=== PATIENT | female | born 1960 | race Caucasian/White ===

== ENCOUNTER 2020-08-11 12:01 | Day surgery (SDC) | payer MEDICAID ==
[~2020-08-11] VITALS: Ht 162.6 cm; Wt 85.4 kg
--- NOTE | ~2020-08-11 | HEMODYNAMI ---
PATIENT:LUCÍA GAMEZ MEDICAL RECORD: [id number] : 62 LOCATION:[facility] ADMISSION DATE: 08/11/20 Generatedon:114:41 Patient name: LUCÍA GAMEZ Patient #: [id number] SSN: [id number] : 1960 Date of study: 08/11/2020 Page: Of Hemodynamic Procedure Report Patient Data Patient Demographics Procedure consent was obtained First Name: LUCÍA Gender: Female Last Name: FRANCO : 1960 Patient #: [id number] Age: 59 year(s) Race: SSN: [id number] Additional ID: [id number] Contact details [address]: [address] [place] [address] State: [place] City: [place] Zip code: [address] Past Medical History Allergies: No known allergies Admission Admission Data Admission Date: 08/11/2020 Admission Time: 12:01 Arrival Date: 08/11/2020 Arrival Time: 0:00 Admit Source: Other Insurance Payor: Medicaid [facility] #: [id number] Height (in.): 64 BSA: 1.91 (m2) Height (cm.): 162.56 BMI: 32.44 (kg/m2) Weight (lbs.): 189 Weight (kg.): 85.73 Lab Results Lab Result Date: 08/11/2020 Lab Result Time: 0:00 Biochemistry Name Units Result Min Max BUN mg/dl 14 --(--*-)-- 7 18 Creatinine mg/dl 0.6 --(*---)-- 0.6 1.3 eGFR ml/min 90 --(*---)-- 90 120 NONAFRICAN CBC Name Units Result Min Max Hematocrit % 42.2 --(*---)-- 42 54 Hemoglobin g/dl 13.8 --(*---)-- 13.5 17.5 Procedure Procedure Types Cath Procedure Diagnostic Procedure [facility] w/Coronaries Sedation Charges Moderate Sedation 10-24 minutes Procedure Description Procedure Date Procedure Date: 08/11/2020 Procedure Start Time: 14:26 Procedure End Time: 14:38 Procedure Staff Name Function Alessandro Albarran RN Record Changer Tester Jsoe David Molina MD Performing Physician Ousmane Aldana RN Nurse Lorena Garcia RT Monitor Terra Jansen RT Scrub Procedure Data Cath Procedure Fluoroscopy Diagnostic fluoroscopy Total fluoroscopy Time: 0.8 time: 0.8 min min Diagnostic fluoroscopy Total fluoroscopy dose: 302 dose: 302 mGy mGy Contrast Material Contrast Material Type Amount (ml) Isovue 300 48 Entry Location Entry Primary Successful Side Size Upsize Upsize Entry Closure Succes sful Closure Location (Fr) 1 (Fr) 2 (Fr) Remarks Device Remarks Femoral Right 5 Fr Exoseal artery Estimated blood loss: 5 ml Diagnostic catheters Device Type Used For End Catheter Placement MULTIPACK JL 4.0 5Fr Procedure catheter MULTIPACK 3DRC 5Fr Procedure catheter MULTIPACK Pigtail 5 Fr Procedure catheter Procedure Complications No complications Procedure Medications Medication Administration Route Dosage 0.9% NaCl I.V. 100 ml/hr Oxygen etCO2 Nasal cannula 2 l/min Heparin Flush Bag added to field 2 bags (1000units/500ml NS) Lidocaine 2% added to field 20 Versed I.V. 1 mg Fentanyl I.V. 50 mcg Versed I.V. 1 mg Fentanyl I.V. 50 mcg Versed I.V. 0.5 mg Versed I.V. 0.5 mg Hemodynamics Rest BSA: 1.91 (m2) HGB: 13.8 (g/dl) O2 Consumption: Estimated: 172.59 (ml/min) O2 Co nsumption indexed: Estimated:90.36 (ml/min/m) Heart Rate: 57 (bpm) Pressure Samples Time Site Value (mmHg) Purpose Heart Use Rate(bpm) 14:33 LV 104/19,21 Snapshot 70 Gradients Valve Time Site Site Mean SEP/DFP Peak To Heart Use 1 2 (mmHg) (sec/min) Peak Rate (mmHg) (bpm) Aortic 14:33 LV AO 64 Snapshots Pre Cath Intra NCS Post Cath Vital Signs Time Heart Resp SPO2 etCO2 NIBP Rhythm Pain Sedation Rate (ipm) (%) (mmHg) (mmHg) Status Level (bpm) 14:20:01 59 16 100 33.7 129/78(94) NSR 0 (11) 10(A) , No pain 14:24:11 65 16 96 34.5 106/74(85) NSR 0 (11) 10(A) , No pain 14:28:13 60 15 93 24 114/72(88) NSR 0 (11) 10(A) , No pain 14:32:19 69 14 92 37.5 116/71(92) NSR 0 (11) 10(A) , No pain 14:36:24 69 15 94 21.7 115/71(88) NSR 0 (11) 10(A) , No pain Medications Time Medication Route Dose Verified Delivered Reason Notes Eff ectiveness by by 14:19:52 0.9% NaCl I.V. 100 Ousmane Ousmane Per ml/hr Katya Aldana physician RN RN 14:20:01 Oxygen etCO2 2 Ousmane Ousmane for low 02 Nasal l/min Lorigan Lorigan sats cannula RN RN 14:20:12 Heparin Flush added 2 Ousmane Ousmane used for Bag to bags Lorigan Lorigan procedure (1000units/500ml field RN RN NS) 14:20:23 Lidocaine 2% added 20ml Ousmane Ousmane for local to vial Lorigan Lorigan anesthetic field RN RN 14:24:23 Versed I.V. 1 mg Ousmane Ousmane for Lorigan Lorigan sedation RN RN 14:24:31 Fentanyl I.V. 50 Ousmane Ousmane for mcg Lorigan Lorigan sedation RN RN 14:27:56 Versed I.V. 1 mg Ousmane Ousmane for Lorigan Lorigan sedation RN RN 14:28:02 Fentanyl I.V. 50 Ousmane Ousmane for mcg Lorigan Lorigan sedation RN RN 14:29:39 Versed I.V. 0.5 Ousmane Ousmane for mg Lorigan Lorigan sedation RN RN 14:33:16 Versed I.V. 0.5 Ousmane Ousmane for mg Lorigan Lorigan sedation RN accountant tax Log Time Note 13:29:16 Informed consent obtained and on chart 13:29:34 Diagnostic Cath Status : Elective 13:29:55 Arrival Date: 08/11/2020 12:00:00 AM 13:29:56 Admit Source: Other 13:29:59 Insurance Payor : Medicaid 13:30:15 Patient Height : 64 inches 13:30:17 Patient Weight : 189 lbs 14:02:10 Procedure Status Elective Heart Cath (OP). 14:02:11 Time tracking: Regular hours (M-F 7:00 - 5:00) 14:02:15 Plan of Care:Hemodynamics will remain stable., Cardiac rhythm will remain stable., Comfort level will be maintained., Respiratory function will remain adequate., Patient/ family verbilizes understanding of procedure., Procedure tolerated without complication., Recovers from procedure without complications.. 14:02:49 H&P Date Dictated: 08/05/2020 Within 30 days and on chart., H&P Addendum completed by physician on day of procedure. (MUST COMPLETE FOR ALL OUTPATIENTS). 14:02:55 Patient allergic to No known allergies 14:04:01 Ousmane Aldana RN sent for patient. Start room use. 14:05:52 ACC Patient presents with Stable Angina CCS Anginal Class 2--Slight limitation of ordinary activity. 14:05:57 Family in waiting room. 14:05:58 Patient NPO since Midnight. 14:06:02 Alarms reviewed by R. N. 14:06:02 Sharps counted by scrub and verified by R.N. 14:06:05 Lab results completed and on chart. 14:06:30 Lab Result : Creatinine 0.6 mg/dl 14:06:30 Lab Result : BUN 14 mg/dl 14:06:30 Lab Result : eGFR NONAFRICAN 90 ml/min 14:06:30 Lab Result : Hemoglobin 13.8 g/dl 14:06:30 Lab Result : Hematocrit 42.2 % 14:06:35 Stress Test: no; N/A ? 14:17:40 Patient received from Pre/Post Procedure Room to CCL 2 Alert and oriented. Tansferred to table in Supine position. 14:17:41 Warm blankets applied, and brianne hugger turned on for patient comfort. 14:17:42 Correct patient and procedure confirmed by team. 14:17:42 ECG and BP/O2 sat monitors applied to patient. 14:17:43 Vital chart was started 14:17:45 Baseline sample Acquired. 14:17:48 Rhythm: sinus bradycardia 14:17:49 Full Disclosure recording started 14:17:50 Pre-procedure instructions explained to patient. 14:17:51 Pre-op teaching completed and patient verbalized understanding. 14:17:53 Is the patient allergic to Iodine/contrast media? No. 14:17:54 Is patient on blood thinner?No 14:17:55 Patient diabetic? No. 14:19:07 Patient not . Patient is over age 55. 14:19:42 Previous problem with sedation/anesthesia? No ? 14:19:43 Snore? Yes 14:19:44 Sleep apnea? No 14:19:45 Deviated septum? No 14:19:45 Opens mouth fully? Yes 14:19:46 Sticks out tongue? Yes 14:19:48 Airway obstruction? No ? 14:19:50 Dentures? No ? 14:19:52 0.9% NaCl 100 ml/hr I.V. was administered by Ousmane Aldana RN; Per physician; Verbal order read back and verified. 14:19:54 Pre procedure: right dorsailis pedis pulse 1+ Palpable, but thready & weak; easily obliterated 14:19:59 IV patent on arrival in right wrist with 0.9% NaCl at O. 14:20:01 Oxygen 2 l/min etCO2 Nasal cannula was administered by Ousmane Aldana RN; for low 02 sats; Verbal order read back and verified. 14:20:08 Right groin area was prepped with chlora-prep and draped in sterile fashion 14:20:12 Heparin Flush Bag (1000units/500ml NS) 2 bags added to field was administered by Ousmane Aldana RN; used for procedure; Verbal order read back and verified. 14:20:23 Lidocaine 2% 20ml vial added to field was administered by Ousmane Aldana RN; for local anesthetic; Verbal order read back and verified. 14:24:03 --------ALL STOP TIME OUT------ 14:24:03 Final Timeout: patient, procedure, and site verified with staff and physician. All members of the team are in agreement. 14:24:04 Right groin site verified by team. 14:24:07 Fire Safety Assessment: A--An alcohol-based skin anteseptic being used preoperatively., C--Open oxygen or nitrous oxide is being used., D--An ESU, laser, or fiber-optic light is being used. 14:24:10 Physical assessment completed. ASA score P 2 - A patient with mild systemic disease as per Jose David Molina MD. 14:24:12 1) 90+ Normal kidney functon but urine findings or structural abnormalities or genetic trait point to kidney disease. 14:24:15 Maximum allowable contrast dose (3.7 X eGFR X 0.75)250 ml. 14:24:17 Sedation plan: IV Moderate Sedation Medication:Versed, Fentanyl 14:24:23 Versed 1 mg I.V. was administered by Ousmane Aldnaa RN; for sedation; Verbal order read back and verified. 14:24:31 Fentanyl 50 mcg I.V. was administered by Ousmane Aldana RN; for sedation; Verbal order read back and verified. 14:25:12 Use device set Femoral Dx 14:25:13 ACIST Syringe (24117) opened to sterile field. 14:25:13 Bag Decanter (2002S) opened to sterile field. 14:25:14 ACIST Manifold (53756) opened to sterile field. 14:25:15 ACIST Hand Control (10648) opened to sterile field. 14:25:15 Tegaderm 4 x 4 (1626W) opened to sterile field. 14:25:16 Medline Cath Pack ([id number]) opened to sterile field. 14:25:17 DIAGNOSTIC Multipack 5Fr catheter set (RX8768) opened to sterile field. 14:25:18 SHEATH 5FR Dyer (TUI120) opened to sterile field. 14:25:18 EMERALD Guide Wire (562-519) opened to sterile field. 14:25:56 Procedure started. 14:26:40 Zero performed for pressure channel P1 14:26:49 Local anesthetic to right femoral artery with Lidocaine 2% by Jose David Molina MD.INITIAL ACCESS ONLY 14:27:56 Versed 1 mg I.V. was administered by Ousmane Aldana RN; for sedation; Verbal order read back and verified. 14:28:02 Fentanyl 50 mcg I.V. was administered by Ousmane Aldana RN; for sedation; Verbal order read back and verified. 14:28:18 A 5 Fr sheath was inserted into the Right Femoral artery 14:28:34 A MULTIPACK JL 4.0 5Fr catheter was advanced over the wire and used for Procedure. 14:29:05 LCA angiography performed. 14:29:39 Versed 0.5 mg I.V. was administered by Ousmane Aldana RN; for sedation; Verbal order read back and verified. 14:30:01 Catheter removed. 14:30:17 A MULTIPACK 3DRC 5Fr catheter was advanced over the wire and used for Procedure. 14:31:30 RCA angiography performed. 14:31:37 Catheter removed. 14:32:22 A MULTIPACK Pigtail 5 Fr catheter was advanced over the wire and used for Procedure. 14:32:47 LV gram done using MENARD 14:33:00 Injector settings: Ml/sec: 10, Volume: 20, 14:33:10 LV hemodynamics recorded. 14:33:16 Versed 0.5 mg I.V. was administered by Ousmane Aldana RN; for sedation; Verbal order read back and verified. 14:33:17 EF : 55 % 14:33:35 Catheter removed. 14:34:00 EXOSEAL 5Fr (EX500) opened to sterile field. 14:34:51 Sheath removed intact; hemostasis achieved with Exoseal to the Right Femoral artery. 14:35:14 Procedure ended.(Physican Out) 14:35:43 Fluoroscopy time 00.80 minutes. 14:35:47 Flurop Dose total: 302 14:35:47 Fluoroscopy dose: 302 mGy 14:35:50 Dose Area Product 85401 mGy/cm. 14:35:54 Contrast amount:Isovue 300 48ml. 14:35:56 Maximum allowable dose exceeded? No. 14:35:56 Sharps counted by scrub and verified by R.N. 14:35:59 Post-op/insertion site Right Femoral artery dressed using a 4 x 4 and Tegaderm. 14:36:10 Post-procedure physical assessment completed. ASA score P 2 - A patient with mild systemic disease as per Jose David Molina MD. 14:36:17 Post procedure rhythm: sinus rhythm 14:36:24 Estimated blood loss: 5 ml 14:36:25 Post procedure instruction explained to patient.Patient verbalizes understanding. 14:36:25 Patient needs reinforcement of post procedure teaching. 14:36:40 Procedure type changed to Cath procedure, Diagnostic procedure, LHC, LHC w/Coronaries, Sedation Charges, Moderate Sedation 10-24 minutes 14:36:57 Procedure and supply charges have been captured, reviewed, submitted and are correct. 14:36:59 Procedure Complication : No complications 14:37:05 LHC Findings: mild to moderate CAD (<70%) 14:37:06 Operative report dictated upon procedure completion. 14:37:07 See physician's report for complete and final results. 14:37:43 Vital chart was stopped 14:37:52 Report given to Pre/Post Procedure Room. 14:37:59 Patient transfered to Pre/Post Procedure Room with Bed. 14:38:01 Procedure ended. 14:38:01 Full Disclosure recording stopped 14:38:07 End room use (Document Last) 14:40:22 End room use (Document Last) 14:41:13 End room use (Document Last) Device Usage Item Name Manufacture Quantity Catalog Hospital Part Current Minimal L ot# / Number Charge Number Stock Stock Serial# Code ACIST Acist 1 20067 329689 233673 126343 20 Syringe Medical (35237) Systems Inc Bag Microtek 1 2001S 252961 22929 585784 5 Decanter Medical Inc. () ACIST Acist 1 77462 023239 208192 746866 5 Manifold Medical (41673) Systems Inc ACIST Hand Acist 1 73133 693290 399835 207330 5 Control Medical (28355) Systems Inc Tegaderm 4 3M 1 1626W 229669 800464 378805 5 x 4 (1626W) Medline Medline 1 [id number] 654571 62306 597535 5 Cath Pack ([id number]) DIAGNOSTIC Cardinal 1 AK4896 570422 71559 983222 30 Multipack Health 5Fr catheter set (BX4312) SHEATH 5FR Terumo 1 IJQ142 970512 276502 892955 5 Dyer (JYX203) EMERALD Cardinal 1 502-455 971901 005941 925942 5 Guide Wire Health (502-455) MULTIPACK Cardinal 1 893303 5 JL 4.0 5Fr Health catheter MULTIPACK Cardinal 1 478576 5 3DRC 5Fr Health catheter MULTIPACK Cardinal 1 859367 5 Pigtail 5 Health Fr catheter EXOSEAL 5Fr Cardinal 1 EX500 615859 923925 252355 10 (EX500) Health Signature Audit [place] Stage Time Signature Unsigned Intra-Procedure 08/11/2020 Lorena Garcia 2:40:22 PM RT(R) Intra-Procedure 08/11/2020 Ousmane 2:41:13 PM Lorigan RN Intra-Procedure 08/11/[address] 2:41:30 PM Sravan ISAAC Signatures Performing Physician : Signature : Jose David Molina MD Date : Time : Nurse : Ousmane Lorigan Signature : RN Date : Time : Monitor : Lorena Garcia Signature : RT Date : Time : [facility] [address] [place] [address]
[2020-08-11] MEDS ORDERED: REQUIP0.25 MG PO (12:28)
[2020-08-11] MEDS ORDERED: ATARAX 25 MG TA25 MG PO (12:28)
[2020-08-11] MEDS ORDERED: RISPERDAL1 MG PO (12:29)
[2020-08-11 12:56] VITALS: BP 105/73; Ht 162.6 cm; Wt 85.4 kg
[2020-08-11 12:56] LABS: BASOPHILS 0.8 % (0-2); EOSINOPHILS 0.8 % (0-7); HEMATOCRIT 42.2 % (36.0-48.0); HEMOGLOBIN 13.8 g/dL (12-16); LYMPHOCYTES 28.7 % (15-50); MCH 29.4 pg (26.0-34.0); MCHC 32.7 g/dL (31.0-37.0); MEAN PLATELET VOLUME 7.9 fL (7.4-10.4); MONOCYTES 9.5 % (2-11); NEUTROPHILS 60.2 % (40-80); PLATELET COUNT 329 10x3/uL (130-400); RBC 4.69 10x6/uL (4.00-5.40); RDW 14.1 % (11.5-14.5); WBC 8.2 10x3/uL (4.8-10.8)
[2020-08-11 13:24] LABS: ALT (SGPT) 21 U/L (10-68); CALC OSMOLALITY 270 mosm/kg (275-300); CALCIUM 8.7 mg/dL (8.5-10.1); CARBON DIOXIDE 22.2 mmol/L (21.0-32.0); CHLORIDE - SERUM 104 mmol/L (98-107); CHOL - HDL RATIO 3.6 ratio (2.3-4.1); CHOLESTEROL, TOTAL 200 mg/dL (0-200); CREATININE - SERUM 0.6 mg/dL (0.6-1.3); GLUCOSE 93 mg/dL (74-106); HDL CHOLESTEROL 56 mg/dL (32-96); LDL CHOLESTEROL 128 mg/dL (0-100); LDL-HDL RATIO 2.3 ratio (1.5-3.5); POTASSIUM - SERUM 4.4 mmol/L (3.5-5.1); SODIUM 135 mmol/L (136-145); TRIGLYCERIDE 83 mg/dL (30-200); UREA NITROGEN 14 mg/dL (7-18); eGFR NON AFRICAN AMERICAN > 90 mL/min (90-120)
--- NOTE | 2020-08-11 14:50 | NUR ---
PT ARRIVES TO ROOM 9 VIA STRETCHER S/P HEART CATH. SEE REFUGE MANAGER. PT DENIES PAIN OR NEEDS, PT UP DATED ON PLAN OF CARE AND TIME FRAMES. PT INFORMED THAT SHE NEEDS TO KEEP HER HEAD ON PILLOW AND TO KEEP RIGHT LEG STILL PT VERBALIZED UNDERSTANDING. CALL LIGHT WITHIN REACH
--- NOTE | 2020-08-11 15:10 | NUR ---
PT WITH EYES CLOSED AROUSES EASILY TO VERBAL, VSS, SB NO ECTOPY, RIGHT GROIN SOFT WITHOUT OOZING OR BLEEDING, EXTREMITY PINK AND WARM AND PEDAL PULSE PALPABLE, CAP REFILL WNL, PT DENIES PAIN OR NEEDS AT PRESENT, IV INFUSING PER ORDERS, CALL LIGHT WITHIN REACH
--- NOTE | 2020-08-11 15:25 | NUR ---
PT RESTING QUIETLY, VSS, SB NO ECTOPY, RIGHT GROIN STABLE WITHOUT OOZING OR BLEEDING , PEDAL PULSE PALPABLE, DENIES PAIN OR NEEDS, CALL LIGHT WITHIN REACH
--- NOTE | 2020-08-11 15:40 | NUR ---
PT WITH EYES CLOSED AROUSES TO VERBAL, VSS, SB, SATS 96% RA, RIGHT GROIN STABLE NO OOZING OR BLEEDING NO PALPABLE HEMATOMA, EXTREMITY WARM AND PEDAL PULSE PALPABLE, DENIES PAIN OR NEEDS, IV PATENT AND INFUSING PER ORDERS, CALL LIGHT WITHIN REACH
--- NOTE | 2020-08-11 15:47 | NUR ---
PT PLACED IN SEMI FOWLERS POSITION, SANDWICH BOX AND PO FLUIDS GIVEN.
--- NOTE | 2020-08-11 15:55 | NUR ---
PT CONSUMED 100% SANDWICH BOX, SIPPING SPRITE, DENIES PAIN OR NEEDS, VSS, SB, RIGHT GROIN STABLE NO OOZING OR BLEEDING , PEDAL PULSE PALPABLE, CAP REFILL WNL, IV PATENT INFUSING PER ORDERS, DISCHARGE TEACHING STARTED, CALL LIGHT WITHIN REACH
--- NOTE | 2020-08-11 16:15 | NUR ---
PT TRANSPORTATION NOTIFIED OF TIME THAT PT WILL BE DISCHARGED AND WERE TO PICK HER UP, TRANSPORTATION (LEANDRO) VERBALIZED UNDERSTANDING
--- NOTE | 2020-08-11 16:25 | NUR ---
DISCHARGE TEACHING COMPLETED INSTRUCTIONS REVIEWED AGAIN WITH PT AND SHE VERBALIZED UNDERSTANDING, EDUCATED PT ON IMPORTANCE OF FOLLOWING ALL DISCHARGE INSTRUCTIONS AND SHE AGREED. PT RIGHT GROIN STABLE AND WITHOUT OOZING OR BLEEDING, NO PALPABLE HEMATOMA, EXTREMITY PINK AND WARM, PEDAL PULSE PALPABLE, DENIES PAIN OR NEEDS, 22G IV REMOVED FROM RIGHT ARM CATHETER INTACT 2 X 2 DRESSING APPLIED. QUESTIONS AND CONCERNS ADDRESSED. PT DRESSES AND AMBULATES TO BATHROOM AND VOIDS WITHOUT DIFFICULTY.
--- NOTE | 2020-08-11 16:45 | NUR ---
PT TAKEN TO AREA ON [facility] FROM [facility] VIA WHEELCHAIR. PT HAS NO NEEDS AT THIS TIME
--- NOTE | 2020-08-13 08:19 | OP ---
PATIENT NAME: LUCÍA GAMEZ MEDICAL RECORD: [id number] :62 LOCATION:D.CAT ADMISSION DATE: SURGEON: NILE REYNOSO MD DATE OF OPERATION: 08/11/2020 PROCEDURE PERFORMED: Left heart cath, selective coronary angiography, right femoral artery approach. CATHETERS: A 5-[place] sheath, 5/4 left and right [place], 5/4 pig. The procedure was well tolerated, the patient returned to the delgado, sheath removed, ExoSeal device placed. FINDINGS: Left ventriculography in 30-degree MENARD view: Normal wall motion, normal systolic function. CORONARY ANATOMY: Left main: The left main is free of disease. LAD: Free of disease in the diagonal system. Circumflex: Free of disease in the marginal system. Right coronary artery: Dominant artery, gives rise to PDA, free of disease. IMPRESSION: Normal LV systolic function, normal coronary anatomy. TRANSINT:[id number] Voice Confirmation ID: [id number] DOCUMENT ID: [id number] NILE REYNOSO MD at 0819 CC: [id number] DICTATION DATE: 08/11/20 1442 BROADCAST TRAFFIC COORDINATOR: 08/12/20 0330 [facility] 08/11/20 [facility] [address] [place] [address]
== END 2020-08-11 16:45 | disposition home or self-care (01) ==
LOC: D.CATH 12:01
PROVIDERS: ATTEND Internal Medicine Interventional Cardiology
DX: I20.9 Angina pectoris, unspecified (principal); R07.9 Chest pain, unspecified; R06.00 Dyspnea, unspecified